=== PATIENT | female | born 1945 | race African-American/Black ===

== ENCOUNTER 2024-02-24 10:15 | Emergency (ER) | payer OTHER, MEDICAID ==
[~2024-02-24] VITALS: Ht 167.6 cm; Wt 59.0 kg
[2024-02-24 10:19] VITALS: O2SAT 99
[2024-02-24] MEDS: SODIUM CHLORIDE 0.9% 500 ML IV ONE (10:53)
[2024-02-24 12:25] LABS: BASOPHILS % 0.4 % (0.0-2.0); EOSINOPHILS % 0.9 % (0.0-5.0); HEMATOCRIT. 41.2 % (36.0-48.0); HEMOGLOBIN. 12.4 g/dL (12.0-16.0); LYMPHOCYTES % 15.7 % (20.0-50.0); MEAN CORPUSCULAR HEMOGLOBIN 22.3 pg (28.0-32.0); MEAN CORPUSCULAR VOLUME 74.3 fL (81.0-99.0); MONOCYTES % 5.4 % (2.0-8.0); NEUTROPHILS % 77.6 % (40.0-76.0); PLATELET 202 x1000/uL (130-400); RED BLOOD CELL COUNT 5.55 mill/uL (4.2-5.4); RED CELL DISTRIBUTION WIDTH 22.1 % (11.6-14.6)
[2024-02-24 12:31] LABS: ADD RBC MORPHOLOGY YES; DIFFERENTIAL COMMENT 1
[2024-02-24 12:32] LABS: CHLORIDE 109 mEq/L (98-107); POTASSIUM 5.1 mEq/L (3.5-5.1); SODIUM 139 mEq/L (136-145)
[2024-02-24 12:33] LABS: CALCIUM 9.5 mg/dL (8.7-10.4); CARBON DIOXIDE 18 mEq/L (21-32)
[2024-02-24 12:38] LABS: GLUCOSE 88 mg/dL (70-105); UREA NITROGEN BLOOD 52 mg/dL (9-23)
[2024-02-24 12:49] LABS: TROPONIN I HIGH SENSITIVITY 44 ng/L (3.0-34)
[2024-02-24] MEDS: MAGNESIUM 2 G PREMIX 50 ML IV ONE (12:55)
[2024-02-24] MEDS: ASPIRIN 325MG EC TABLET PO NR (12:58)
[2024-02-24 13:56] LABS: ANISOCYTOSIS 2+; MICROCYTOSIS 1+; PLATELET ESTIMATE NORMAL
[2024-02-24 15:05] LABS: POTASSIUM 5.2 mEq/L (3.5-5.1)
[2024-02-24 15:06] LABS: CALCIUM 9.2 mg/dL (8.7-10.4)
[2024-02-24 15:43] VITALS: BP 120/65; PULSE 88; RESP 18; TEMP 36.89184; O2SAT 99
== END 2024-02-24 15:54 | disposition short-term general hospital (02) ==
LOC: ER 10:15
DX: R55 Syncope and collapse (principal); I11.0 Hypertensive heart disease with heart failure; I50.9 Heart failure, unspecified
CPT/HCPCS: 99291; 96360; 80048; 83880; 83735; 85025; 84484; 36415; 71045; 93005; J7040; 99285